=== PATIENT | male | born 1995 | race African-American/Black ===

== ENCOUNTER → 2019-11-02 | Emergency (ER) | payer MEDICAID ==
[~2019-11-02] VITALS: Ht 182.9 cm; Wt 87.1 kg
[2019-11-02 13:02] VITALS: BP 127/77
[2019-11-02 13:34] LABS: Basophils # (auto) 0 uL; Basophils % (auto) 0.6 % (0.0-2.0); Eosinophils # (auto) 0.2 uL; Eosinophils % (auto) 2.3 % (0.0-7.0); Hematocrit 48.4 % (41.0-53.0); Hemoglobin 16.3 g/dL (13.5-17.5); Lymphocytes # (auto) 1.8 uL; Lymphocytes % (auto) 25.8 % (10.0-50.0); Mean Corpuscular Hemoglobin 31.3 pg (28.0-32.0); Mean Corpuscular Hgb Conc. 33.6 g/dL (32.0-36.0); Mean Corpuscular Volume 93.2 fL (80.0-100.0); Monocytes # (auto) 0.5 uL; Monocytes % (auto) 6.7 % (0.0-12.0); Neutrophils # (auto) 4.5 uL; Neutrophils % (auto) 64.6 % (37.0-80.0); Nucleated Red Blood Cells % 0.2 %; Platelet Count (auto) 290 10^3/uL (140-450); Red Blood Cells 5.19 10^6/uL (4.5-5.90); Red Cell Distribution Width 13.1 % (11.8-14.3)
[2019-11-02 13:55] LABS: Alanine Aminotransferase 21 U/L (16-61); Albumin 3.9 g/dL (3.4-5.0); Anion Gap 7 (5-15); Blood Alcohol < 3.0 mg/dL (0-5); Blood Urea Nitrogen 12 mg/dL (7-18); Calcium 8.8 mg/dL (8.5-10.1); Carbon Dioxide 24 mmol/L (21-32); Chloride 107 mmol/L (98-107); Glucose 88 mg/dL (74-106); Magnesium 2.4 mg/dL (1.6-2.6); Potassium 3.6 mmol/L (3.5-5.1); Sodium 138 mmol/L (136-145)
[2019-11-02 13:56] LABS: Salicylate 2.6 mg/dL (2.8-20.0)
[2019-11-02 13:58] LABS: Acetaminophen < 2.0 ug/mL (10-30); Alkaline Phosphatase 73 U/L (45-117); Aspartate Aminotransferase 19 U/L (15-37); BUN/Creatinine Ratio 12.4; Bilirubin, Total 0.6 mg/dL (0.2-1.0); GFR African American 124 mL/min; GFR Non-African American 103 mL/min; Total Protein 8.1 g/dL (6.4-8.2)
== END | disposition left against medical advice (07) ==
LOC: ER 12:48
DX: F32.9 Major depressive disorder, single episode, unspecified (principal); T40.2X2A Poisoning by other opioids, intentional self-harm, initial encounter; F17.210 Nicotine dependence, cigarettes, uncomplicated; Y92.89 Other specified places as the place of occurrence of the external cause
CPT/HCPCS: 36415; 80053; 80320; 80329; 83735; 85025